=== PATIENT | female | born 1980 | race Caucasian/White ===

== ENCOUNTER → 2018-07-26 | Outpatient (CLI) | payer MEDICARE, OTHER ==
--- NOTE | 2018-07-26 17:17 | RADRPT ---
Vent Rate: 62 bpm RR Interval: 968 msec LA Interval: 172 msec QRS Duration: 106 msec QT Interval: 425 msec QTC Interval: 432 msec P-R-T Basin: 31 - 41 - 36 degrees Sinus rhythm...normal P axis, V-rate 50- 99 Electronically Signed By: Mac Jansen
== END | disposition home or self-care (01) ==
LOC: RAD 12:04
PROVIDERS: ATTEND Internal Medicine
DX: Z01.818 Encounter for other preprocedural examination (principal)
CPT/HCPCS: 71045; 80048; 81001; 85025; 93005